=== PATIENT | female | born 1970 | race Caucasian/White ===

== ENCOUNTER 2018-06-17 04:35 | Emergency (ER) | payer OTHER ==
[~2018-06-17] VITALS: Ht 160 cm; Wt 77.1 kg
[~2018-06-17 04:35] MED LIST: AMOXICILLIN500 M1 PO; NOHOMEMEDICATIONS; OTIC CARE OTIC14 ML OT; PROMETHAZINE-D120 ML PO
[2018-06-17] MEDS ORDERED: MOBIC15 MG PO (05:18)
[2018-06-17] MEDS ORDERED: NORCO 7.5-3251 EACH PO (05:18)
[2018-06-17] MEDS ORDERED: ZESTRIL10 MG PO (05:43)
[2018-06-17 05:57] VITALS: BP 188/86
== END 2018-06-17 05:57 | disposition home or self-care (01) ==
LOC: M.ERS 04:35
DX: S49.81XA Other specified injuries of right shoulder and upper arm, initial encounter (principal); F17.210 Nicotine dependence, cigarettes, uncomplicated; V89.2XXA Person injured in unspecified motor-vehicle accident, traffic, initial encounter; Y93.89 Activity, other specified; Y92.89 Other specified places as the place of occurrence of the external cause; Y99.8 Other external cause status

== ENCOUNTER 2018-12-29 19:57 | Emergency (ER) | payer OTHER ==
[~2018-12-29] VITALS: Ht 160 cm; Wt 81.7 kg
[~2018-12-29 19:57] MED LIST changes: +MOBIC15 MG PO; +NORCO 7.5-3251 EACH PO; +ZESTRIL10 MG PO
[2018-12-29 20:43] LABS: ABSOLUTE BASOPHILS 0.1 thou/uL (0.0-0.2); ABSOLUTE EOSINOPHILS 0.2 thou/uL (0.0-0.7); ABSOLUTE LYMPHOCYTES 2.5 thou/uL (0.8-5.3); ABSOLUTE MONOCYTES 0.6 thou/uL (0.0-1.2); ABSOLUTE NEUTROPHILS 3.4 thou/uL (1.6-8.1); BASOPHILS 1.1 %; EOSINOPHILS 2.5 %; HEMATOCRIT 40.3 % (37.0-47.0); HEMOGLOBIN 13.7 gm/dL (12.0-15.0); LYMPHOCYTES 37.4 %; MCH 31.5 pg (26.0-34.0); MCHC 33.9 g/dL (28.0-37.0); MCV 92.9 fL (80.0-100.0); MONOCYTES 8.4 %; MPV 9.8 fl. (7.2-11.1); NUCLEATED RBCS 0 /100WBC; PLATELET COUNT* 238 thou/uL (150-400); POLYS 50.6 %; RBC 4.34 mil/uL (4.20-5.00); RDW-CV 12.9 % (10.5-14.5); WBC 6.7 thou/uL (4.0-11.0)
[2018-12-29 20:52] LABS: CREATININE 0.8 mg/dL (0.6-1.3); POTASSIUM 3.6 mmol/L (3.5-5.1)
[2018-12-29 21:03] LABS: ALBUMIN 3.4 g/dL (3.4-5.0); TOTAL BILIRUBIN 0.2 mg/dL (<0.1-1.0)
[2018-12-29 21:45] VITALS: BP 146/94
== END 2018-12-29 21:45 | disposition home or self-care (01) ==
LOC: M.ERS 19:57
PROVIDERS: Family Medicine
DX: M71.22 Synovial cyst of popliteal space [Baker], left knee (principal); F17.210 Nicotine dependence, cigarettes, uncomplicated; Z98.890 Other specified postprocedural states